=== PATIENT | male | born 1945 | race Caucasian/White ===

== ENCOUNTER 2019-11-06 15:28 | Outpatient (CLI) | payer OTHER, SELFPAY ==
[2019-11-06 16:19] LABS: ABG PCO2 48.4 mmHg (35-45); ABG PH Result 7.43 (7.35-7.45); Arterial Blood Gas Hematocrit 44.1 % (42-52); Base Excess ABG 6.3 mmol/L (-2.0-2.0); Blood Gas Allen Test Pos; Blood Gas Sample Site Radial, right; Blood Gas Sample Type Arterial; HCO3 ABG 31.9 mmol/L (22-26); Oxygen Device ROOM AIR; PO2 ABG 64.7 mmHg (80.0-100.0)
== END 2019-11-06 15:29 | disposition home or self-care (01) ==
PROVIDERS: Family Provider Family Medicine; PCP Family Medicine; Visit Provider Internal Medicine Critical Care Medicine
DX: J44.9 Chronic obstructive pulmonary disease, unspecified (principal)
CPT/HCPCS: 36600; 82803

== ENCOUNTER 2019-11-30 14:02 | Outpatient (CLI) | payer OTHER, SELFPAY ==
[2019-11-30 14:17] VITALS: O2SAT 87; O2SAT 92
--- NOTE | 2019-11-30 14:51 | PFTS_ITS ---
Date of Study:11/30/19 Date of Dictation: MECHANICS: Forced vital capacity (FVC) is reduced. Forced expiratory volume in one second (FEV1) is reduced. FEV1/FVC is reduced. FLOW VOLUME LOOP: Reduced flow at all lung volumes with significant scooping. LUNG VOLUMES: Total lung capacity (TLC) is normal. Residual volume (RV) is increased. DIFFUSING CAPACITY FOR CARBON MONOXIDE: Mildly reduced. INTERPRETATION: The pulmonary function tests are consistent with very severe obstruction. Lung volumes are consistent with air trapping. Gas exchange (DLCO) is mildly reduced. MTDD
--- NOTE | 2019-11-30 16:30 | USCV_ITS ---
Jarred Breaux Age: 74 Gender: M : 1945 Exam Date: 11/30/2019 15:01 Ordering Phys: Lori Ramos MD Technologist: Trinh Stauffer [place] [facility] [place]: SOB BP: / HR: 72 Rhythm: Sinus Technical Quality: Adequate MEASUREMENTS (Male / Female) Normal Values 2D ECHO LV Diastolic Diameter PLAX 4.3 cm 4.2 - 5.9 / 3.9 - 5.3 cm LV Systolic Diameter PLAX 2.3 cm IVS Diastolic Thickness 0.9 cm 0.6 - 1.0 / 0.6 - 0.9 cm IVS Systolic Thickness 1.7 cm LVPW Diastolic Thickness 1.2 cm 0.6 - 1.0 / 0.6 - 0.9 cm LVPW Systolic Thickness 1.8 cm LVOT Diameter 2.1 cm LV Ejection Fraction 2D Teich 78.5 % LV Ejection Fraction MOD 2C 66.6 % LV Ejection Fraction 2C AL 66.3 % LA Diameter 3.4 cm LA Width 3.2 cm LA Height 4.4 cm RA Width 3.6 cm M-MODE LV Diastolic Diameter MM 4.9 cm 4.2 - 5.9 / 3.9 - 5.3 cm LV Systolic Diameter MM 3.6 cm LV Ejection Fraction MM Teich 53.7 % IVS Diastolic Thickness MM 0.9 cm 0.6 - 1.0 / 0.6 - 0.9 cm IVS Systolic Thickness MM 1.2 cm LVPW Diastolic Thickness MM 0.9 cm 0.6 - 1.0 / 0.6 - 0.9 cm LVPW Systolic Thickness MM 1.8 cm Aortic Annulus Diameter 3.0 cm LA Ao Ratio MM 1.1 MV E Point Septal Separation 0.8 cm DOPPLER AV Peak Velocity 104.0 cm/s LVOT Peak Velocity 84.0 cm/s AV Area Cont Eq vti 3.0 cm squared AV Area Cont Eq pk 2.7 cm squared MV Peak Velocity 111.0 cm/s MV Area PHT 2.9 cm squared Mitral E to A Ratio 0.8 MV E' Velocity 9.0 cm/s Mitral E to MV E' Ratio 8.8 Mitral E to LV E' Lateral Ratio 9.2 Mitral E to LV E' Septal Ratio 8.4 TR Peak Velocity 63.0 cm/s TR Peak Gradient 1.6 mmHg Right Atrial Pressure 3.0 mmHg Pulmonary Artery Systolic Pressu 4.6 mmHg PV Peak Velocity 80.0 cm/s RV Acceleration Time 0.1 s FINDINGS Left Ventricle Normal left ventricular cavity size. Normal left ventricular systolic function. No regional wall motion abnormalities. Left ventricular ejection fraction is estimated at 55 %. Grade I/IV diastolic dysfunction (abnormal relaxation filling pattern), normal to mildly elevated filling pressures. Right Ventricle The right ventricle is normal in size and function. Right Atrium The right atrium is normal in size. Left Atrium The left atrium is normal in size. Mitral Valve Structurally normal mitral valve without significant stenosis or prolapse. There is no mitral regurgitation. Aortic Valve Moderate aortic valve calcification. No aortic valve stenosis. No aortic valve regurgitation. Tricuspid Valve Structurally normal tricuspid valve without significant stenosis or regurgitation. Pulmonary artery systolic pressure is normal. Pulmonic Valve Structurally normal pulmonic valve without significant stenosis. There is no pulmonic regurgitation. Pericardium Normal pericardium without effusion. Aorta Normal ascending aorta dimension. CONCLUSIONS 1-Normal left ventricular cavity size. Normal left ventricular systolic function. No regional wall motion abnormalities. Left ventricular ejection fraction is estimated at 55 %. Grade I/IV diastolic dysfunction (abnormal relaxation filling pattern), normal to mildly elevated filling pressures. 2-Moderate aortic valve calcification. No aortic valve stenosis. No aortic valve regurgitation. 3-There is no pericardial effusion. 4-Right atrial pressure is around 5 mm of mercury. 5-There are no prior echocardiogram studies to compare. Jeremy Camarillo MD (Electronically Signed) Final Date: 30 November 2019 18:20 S
== END 2019-11-30 14:03 | disposition home or self-care (01) ==
LOC: RT 14:04
PROVIDERS: Family Provider Family Medicine; PCP Family Medicine; Visit Provider Internal Medicine Critical Care Medicine
DX: R06.02 Shortness of breath (principal); I51.81 Takotsubo syndrome; I70.0 Atherosclerosis of aorta
CPT/HCPCS: 93306; 94010; 94726; 94729

== ENCOUNTER 2019-12-06 11:10 | Outpatient (CLI) | payer OTHER, SELFPAY | END 2019-12-06 11:11 | disposition home or self-care (01) | LOC: SLEEP 12-07 11:03 | PROVIDERS: Family Provider Family Medicine; PCP Family Medicine; Visit Provider Internal Medicine Critical Care Medicine | DX: J44.9 Chronic obstructive pulmonary disease, unspecified (principal) | CPT/HCPCS: 94762 ==

== ENCOUNTER 2020-01-10 10:37 | Outpatient (CLI) | payer OTHER, SELFPAY ==
--- NOTE | 2020-01-10 10:30 | CT_ITS ---
WS: [id number] CT scan of the chest without IV contrast, additional two-dimensional coronal and sagittal reconstruct ion was performed. 01/10/2020 Clinical Data: Shortness of breath Comparison: CT chest, 03/16/2015. DLP: 922.[address] scans at [facility] use at least one of these dose optimization techniques: automat ed exposure control; mA and/or kV adjustment per patient size (includes targeted exams where dose is matched to clinical indication); or iterative reconstruction. Findings: There are small calcified nodules in the periphery of the lungs. There are numerous calcified lymph n odes in the noah, subcarinal area and mediastinum. No masses or effusions are seen. The heart size is normal with no pericardial effusion. The trachea b ifurcates normally into the bronchi. No pneumonia or pneumothorax is seen. The pulmonary arterial sys tem and thoracic aorta demonstrate no abnormalities or dilatations. There is no axillary adenopathy. The upper abdomen demonstrates no abnormalities. Degenerative arthritic change of the thoracic verteb ral bodies is moderate. CT/CT chest wo con [id number] Impression: 1. Small granulomatous nodules throughout the lungs with calcified mediastinal, hilar and subcarinal lymph nodes unchanged. 2. Negative for acute cardiopulmonary disease.
== END 2020-01-10 10:38 | disposition home or self-care (01) ==
LOC: RADWPI 10:40
PROVIDERS: Family Provider Family Medicine; PCP Family Medicine; Visit Provider Internal Medicine Critical Care Medicine
DX: R06.02 Shortness of breath (principal); R91.8 Other nonspecific abnormal finding of lung field
CPT/HCPCS: 71250

== ENCOUNTER 2020-04-07 12:00 | Outpatient (CLI) | payer OTHER, SELFPAY | END 2020-04-07 12:01 | disposition home or self-care (01) | LOC: SLEEP 04-08 11:51 | PROVIDERS: Family Provider Family Medicine; PCP Family Medicine; Visit Provider Internal Medicine Critical Care Medicine | DX: G47.10 Hypersomnia, unspecified (principal) | CPT/HCPCS: G0399 ==

== ENCOUNTER 2020-07-09 20:00 | Outpatient (CLI) | payer OTHER, SELFPAY | END 2020-07-09 20:01 | disposition home or self-care (01) | LOC: SLEEP 07-10 10:13 | PROVIDERS: Family Provider Family Medicine; PCP Family Medicine; Visit Provider Family Medicine | DX: G47.33 Obstructive sleep apnea (adult) (pediatric) (principal) | CPT/HCPCS: 95811 ==

== ENCOUNTER → 2020-08-04 14:49 | Outpatient (BNVA) | payer OTHER, SELFPAY | PROVIDERS: Family Provider Family Medicine; PCP Family Medicine; Referring Provider Family Medicine; Visit Provider Specialist | DX: M25.532 Pain in left wrist (principal) | CPT/HCPCS: 73110 ==

== ENCOUNTER 2020-09-03 20:00 | Outpatient (CLI) | payer OTHER, SELFPAY | END 2020-09-03 20:01 | disposition home or self-care (01) | LOC: SLEEP 09-04 09:16 | PROVIDERS: Family Provider Family Medicine; PCP Family Medicine; Visit Provider Emergency Medicine Emergency Medical Services | DX: G47.30 Sleep apnea, unspecified (principal) | CPT/HCPCS: 95811 ==

== ENCOUNTER 2020-10-27 15:54 | Emergency (ER) | payer OTHER, MEDICARE, SELFPAY ==
[2020-10-27 16:02] VITALS: BP 146/77; PULSE 86; RESP 20; TEMP 37.1; O2SAT 94; BMI 28.3
[2020-10-27 16:07] VITALS: BP 145/73; PULSE 87; RESP 22; O2SAT 98
--- NOTE | 2020-10-27 16:38 | XRR_ITS ---
PROCEDURE INFORMATION: Exam: XR Right Ankle Exam date and time: 10/27/2020 5:37 PM Age: 75 years old Clinical indication: Injury or trauma; Other: Crush injury; Crushing; Ankle; Right TECHNIQUE: Imaging protocol: XR Right ankle. Views: 1 or 2 views. COMPARISON: No relevant prior studies available. FINDINGS: Bones/joints: Normal. Soft tissues: Diffuse soft tissue swelling. XR/XR ankle RT 1V [id number] IMPRESSION: 1. No fractures are identified on single view imaging. 2. Diffuse soft tissue swelling.
--- NOTE | 2020-10-27 16:38 | XRR_ITS ---
PROCEDURE INFORMATION: Exam: XR Right Tibia and Fibula Exam date and time: 10/27/2020 5:37 PM Age: 75 years old Clinical indication: Injury or trauma; Other: Crush injury; Crushing; Lower leg; Right TECHNIQUE: Imaging protocol: XR Right tibia and fibula. Views: 2 views. COMPARISON: No relevant prior studies available. FINDINGS: Bones/joints: Normal. Soft tissues: Normal. XR/XR tibia fibula RT 2V [id number] IMPRESSION: No acute findings.
--- NOTE | 2020-10-27 16:39 | ED_ITS ---
HPI - Extremity Problem General: Chief complaint: Extremity Injury, Lower Stated complaint: POSS BLOOD CLOT IN LEG, SENT FROM [place] Time Seen by Provider: 10/27/20 16:31 History of Present Illness: HPI Narrative: This patient is a 75-year-old male who presents to the emergency department for right lower leg pain. 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 Patient complains of significant bruising to the midshaft of the right lower leg and distally to the right ankle. Patient states pain is not improved. Patient does take aspirin daily. Will do medical evaluation treat as needed. MD Complaint: extremity pain and extremity swelling Onset (ago): day(s) Pain Consistency: constant Location: right and lower extremity Severity scale (1-10): 7 Associated symptoms: Deny chest pain, fever(s) or rash Review of Systems General: Reports: 10 or more systems reviewed and unremarkable except in HPI and below Const: Denies: fever(s), chills, body aches or fatigue Eyes: Denies: change in vision or blurry vision ENMT: Denies: throat pain, hoarseness or mouth pain Card: Denies: chest pain, palpitations, irregular heart rhythm, edema, swelling of feet/ankles or lightheadedness Resp: Denies: dyspnea, productive cough, non-productive cough, wheezing or lise n on inspiration GI: Denies: abdominal pain, nausea or vomiting : Denies: flank pain, dysuria, urinary frequency, urinary urgency or urinary hesitancy Musc: Reports: extremity pain; Denies: neck pain, back pain, extremity swelling, joint pain, joint swelling, joint redness, joint warmth or limited range of motion Skin/Breast: Denies: rash, pruritus, erythema or skin tenderness Neuro: Denies: headache(s), numbness in extremities or weakness in extremities Psych: Denies: anxiety or depression PFS ED PFSH: Medical History (Updated 10/27/20 @ 18:59 by Casper Sebastian MD) Calculus of kidney COPD (chronic obstructive pulmonary disease) GERD (gastroesophageal reflux disease) HTN (hypertension) Hyperlipidemia TAL (obstructive sleep apnea) Surgical History Hx of tonsillectomy Social History Smoking and tobacco status: former smoker Quit status (tobacco): has quit using tobacco Year quit tobacco: 1979 - 1PPD x 20 Years Second hand smoke exposure: No Alcohol intake: never Lives independently: Yes Household members: spouse Marital status: service: Yes Current occupational status: retired and disabled History of recent travel: No Current gender identity: Male Physical Exam Const: COMMON NORMALS: no acute distress, average body habitus, patient oriented x3, no limitations, healthy appearing, alert and well nourished HENMT: COMMON NORMALS: normocephalic, atraumatic, hearing grossly normal bilaterally, external ears normal, EAC's normal, TM's normal bilaterally, Normal external nose present, Normal nasal mucous membranes and turbinates present, m oist oral mucous membranes, oropharynx normal, dentition normal and gingiva normal HEAD & SCALP: normocephalic and atraumatic NOSE: Normal external nose present and Normal nasal mucous membranes and turbinates present EXTERNAL EAR: Yes external ears normal EXTERNAL AUDITORY CANAL: EAC's normal TYMPANIC MEMBRANE: TM's normal bilaterally Neck/C-Spine: COMMON NORMALS: full ROM, no lymphadenopathy, supple, no meningeal signs, no JVD, Thyroid normal and No carotid bruits THYROID: Thyroid normal Chest: COMMONS NORMALS: normal inspection of the chest, normal palpation of entire chest wall, normal inspection of the breasts and normal palpation of the breasts Breast/axilla inspection: Yes normal inspection of the breasts BREAST/AXILLA PALPATION: Yes normal palpation of the breasts Resp: COMMON NORMALS: normal respiratory effort, No retractions, No use of accessory muscles, clear to auscultation bilaterally and percussion normal AU SCULTATION: clear to auscultation bilaterally PERCUSSION: percussion normal Cardio: COMMON NORMALS: no JVD, regular rate, regular rhythm, S1 normal heart sound present, S2 normal heart sound present, No gallops present (Cardio), No clicks present (Cardio), No murmurs present (Cardio), No rub (Cardio) and P eripheral pulses 2+ throughout RATE: regular rate RHYTHM: regular rhythm HEART SOUNDS: S1 normal heart sound present and S2 normal heart sound present PERIPHERAL PULSES: Peripheral pulses 2+ throughout GI: COMMON NORMALS: Normal to inspection, nondistended, normoactive bowel sounds present, Soft to palpation, non-tender, No hepatosplenomegaly present, no masses and no bruits PALPATION: Yes Soft to palpation and Yes No hepatosplenomegaly present : COMMON NORMALS: Yes no CVA tenderness BLADDER/KIDNEY EXAM: Yes no CVA tenderness Back/Pelvis: COMMON NORMALS: no CVA tenderness, thoracic and lumbar spine normal to inspection, no thoracic nor lumbar tenderness, thoraco-lumbar ROM normal and straight leg raise negative bilaterally Extremity: COMMON NORMALS: full ROM, capillary refill normal, no joint enlargement, no clubbing, cyanosis or edema and no calf tenderness RIGHT LOWER EXTREMITY: Yes lower leg (Patient complaining of pain midshaft and distally of the right lower leg. ) Right lower leg: Yes inspection, Yes palpation and Yes neurovascular exam Neuro: COMMON NORMALS: patient oriented x3 SENSORIUM/ORIENTATION: Yes alert MENINGEAL SIGNS: Yes no meningeal signs Course Reevaluation(s): Reevaluation #1: Negative evaluation in the emergency room for any acute findings. Patient is to continue Horacio wrap as needed for rest ice and elevate leg with compression as instructed. Take medications for pain as needed. Slowly increase activity as swelling subsides. Follow-up with PCP in 2 to 3 days Time: 18:58 Vital Signs: Vital signs: Vital Signs Temperature 98.8 F 10/27/20 16:02 Pulse Rate 79 10/27/20 18:07 Respiratory Rate 18 10/27/20 18:07 Blood Pressure 128/68 10/27/20 18:07 Pulse Oximetry 99 10/27/20 18:07 MDM - Extremity (Nontraumatic) MDM Narrative: Medical decision making narrative: Patient had a injury of his right lower leg while working cattle patient large hematoma continue to have pain. Differential Diagnosis: Extremity Problem Differential Diagnosis: Likely cellulitis and lower extremity edema Medical Records: Attestation: I reviewed the patient's medical records. Imaging Data^: Xray Ortho: Attestation: I personally reviewed and interpreted this imaging study as follows: Radiologist's impression: Negative x-rays of the lower leg on the right for any acute fractures. Only soft tissue swelling. Discharge Plan Discharge Patient Disposition: Home Clinical Impression: Contusion of leg, right Condition: Stable Prescriptions: New diclofenac sodium 75 mg tablet,delayed release (DR/EC) 75 mg PO BID PRN (Reason: pain) Qty: 20 RF: 0 No Action ipratropium-albuterol 0.5 mg-3 mg(2.5 mg base)/3 mL solution for nebulization 3 ml INHALATION QID PRN (Reason: Shortness Of Breath) RF: 0 budesonide-formoterol 160-4.5 mcg/actuation HFA aerosol inhaler 2 puff INHALATION BID RF: 0 hydrochlorothiazide 25 mg tablet 25 mg PO QAM RF: 0 omeprazole 20 mg capsule,delayed release(DR/EC) 20 mg PO QAM RF: 0 tiotropium bromide 2.5 mcg/actuation mist 2 inh INHALATION QAM RF: 0 aspirin [Adult Aspirin Regimen] 81 mg tablet,delayed release (DR/EC) 81 mg PO QAM RF: 0 albuterol sulfate [ProAir HFA] 90 mcg/actuation HFA aerosol inhaler 2 puff INHALATION Q6H PRN (Reason: Shortness Of Breath) RF: 0 flaxseed oil 1,000 mg capsule 1,000 mg PO QAM RF: 0 garlic Tablet 1 tab PO QAM RF: 0 potassium gluconate 595 mg (99 mg) Tablet 595 mg PO QAM RF: 0 Cayenne PDR 1 cap PO QAM RF: 0 Vitamin C 2 tab PO DAILY RF: 0 Vitamin D3 1 cap PO QAM RF: 0 Discharge Orders: Discharge ED (Routine); Ordered 10/27/20 Ordered By: Casper Sebastian Discharge Diet: Advance as tolerated Discharge Activity: Increase activity as tolerated Patient Instructions: Opioid Safety Activity Restrictions/Additional Instructions: Negative evaluation in the emergency room for any acute findings. Patient is to continue Horacio wrap as needed for rest ice and elevate leg with compression as instructed. Take medications for pain as needed. Slowly increase activity as swelling subsides. Follow-up with PCP in 2 to 3 days Coding Level of Care Code ED Ruling Machine Feeder for Kayla Fwtiki Exam Comprehensive
[2020-10-27 16:40] VITALS: PULSE 89
[2020-10-27 18:07] VITALS: BP 128/68; PULSE 79; RESP 18; O2SAT 99
[2020-10-27 19:33] VITALS: BP 127/81; PULSE 86; RESP 17; TEMP 36.9; O2SAT 97
== END 2020-10-27 19:35 | disposition home or self-care (01) ==
PROVIDERS: Emergency Provider Emergency Medicine
DX: S80.11XA Contusion of right lower leg, initial encounter (principal); Z79.82 Long term (current) use of aspirin; J44.9 Chronic obstructive pulmonary disease, unspecified; I10 Essential (primary) hypertension; E78.5 Hyperlipidemia, unspecified; Z87.891 Personal history of nicotine dependence; W23.0XXA Caught, crushed, jammed, or pinched between moving objects, initial encounter
CPT/HCPCS: 73590; 73600; 99283

== ENCOUNTER → 2021-09-17 10:32 | Outpatient (BNVA) | payer OTHER, SELFPAY | PROVIDERS: PCP Family Medicine; Visit Provider Internal Medicine Critical Care Medicine | DX: J44.9 Chronic obstructive pulmonary disease, unspecified (principal); J96.11 Chronic respiratory failure with hypoxia; J96.12 Chronic respiratory failure with hypercapnia; Z87.891 Personal history of nicotine dependence; G47.33 Obstructive sleep apnea (adult) (pediatric) | CPT/HCPCS: 99214 ==

== ENCOUNTER → 2022-01-21 10:35 | Outpatient (BNVA) | payer OTHER, SELFPAY | PROVIDERS: PCP Family Medicine; Visit Provider Internal Medicine Critical Care Medicine | DX: J44.9 Chronic obstructive pulmonary disease, unspecified (principal); J96.11 Chronic respiratory failure with hypoxia; J96.12 Chronic respiratory failure with hypercapnia; G47.33 Obstructive sleep apnea (adult) (pediatric); Z99.81 Dependence on supplemental oxygen | CPT/HCPCS: 99214 ==

== ENCOUNTER → 2022-07-20 13:24 | Outpatient (BNVA) | payer OTHER, SELFPAY | PROVIDERS: PCP Family Medicine; Visit Provider Internal Medicine Pulmonary Disease | DX: J44.9 Chronic obstructive pulmonary disease, unspecified (principal); J96.11 Chronic respiratory failure with hypoxia; J96.12 Chronic respiratory failure with hypercapnia; Z99.81 Dependence on supplemental oxygen; Z87.891 Personal history of nicotine dependence | CPT/HCPCS: 99214 ==

== ENCOUNTER → 2023-01-13 08:38 | Outpatient (BNVA) | payer OTHER, SELFPAY | PROVIDERS: PCP Family Medicine; Visit Provider Internal Medicine Pulmonary Disease | DX: J96.11 Chronic respiratory failure with hypoxia (principal); J44.9 Chronic obstructive pulmonary disease, unspecified; J96.12 Chronic respiratory failure with hypercapnia; Z87.891 Personal history of nicotine dependence; Z99.81 Dependence on supplemental oxygen | CPT/HCPCS: 99214 ==

== ENCOUNTER → 2023-03-21 14:34 | Outpatient (BNVA) | payer OTHER, SELFPAY | PROVIDERS: PCP Family Medicine; Visit Provider Surgery | DX: R10.9 Unspecified abdominal pain (principal); K43.9 Ventral hernia without obstruction or gangrene | CPT/HCPCS: 99204 ==

== ENCOUNTER 2023-03-30 14:39 | Outpatient (CLI) | payer OTHER, SELFPAY ==
--- NOTE | 2023-03-30 16:00 | CT_ITS ---
WS: [id number] CT ABDOMEN PELVIS TECHNIQUE: Contrast-enhanced CT of the abdomen and pelvis with coronal and sagittal reformatted image s. CLINICAL INFORMATION: abdominal pain/abdominal wall hernia COMPARISON: None. DLP: 410.[address] scans at [facility] use at least one of these dose optimization techniques: automated e xposure control; mA and/or kV adjustment per patient size (includes targeted exams where dose is matc hed to clinical indication); or iterative reconstruction. FINDINGS: Small RIGHT parasagittal fat-containing periumbilical hernia. Small knuckle of protruding small margo l. No evidence of obstruction. Evidence of prior repair fat-containing midline umbilical hernia. Tiny calcified granulomas in the lung bases. Diffuse fatty filtration of the liver. Normal portal vei n and splenic vein. Small esophageal hiatal hernia. Small RIGHT renal cyst. Adrenal glands are normal . Normal renal parenchymal enhancement and hydronephrosis. Normal caliber abdominal aorta. Aortic wanda cification. Slightly aneurysmal infrarenal abdominal aorta measuring 2.3 x 2.2 cm. Celiac and SMA are patent. Enlarged prostate measuring 4.8 cm. Recommend correlation PSA. Impingement on the dorsal bladder. Sig moid diverticulosis. No evidence of acute diverticulitis. No high-grade small or large bowel obstruct ion. Small bilateral fat-containing inguinal hernias. Advanced joint arthritis both hips with joint s pace narrowing hypertrophic changes. IMPRESSION: 1. Small fat-containing parasagittal umbilical hernia with a small knuckle of herniated small bowel. No evidence of obstruction. 2. Evidence of prior fat-containing midline umbilical hernia repair. 3. Markedly enlarged prostate measuring 4.8 cm. Recommend correlation PSA. 4. Sigmoid diverticulosis. 5. Small slightly aneurysmal infrarenal abdominal aorta measuring 2.3 x 2.2 cm. 6. Incidental fat-containing inguinal hernias.
[2023-03-30] MEDS: iohexol 350 mg/mL 500 mL Btl (per mL) PO (16:08)
[2023-03-30] MEDS: iohexol 350 mg/mL 500 mL Btl (per mL) IV (16:10)
== END 2023-03-30 14:40 | disposition home or self-care (01) ==
PROVIDERS: PCP Family Medicine; Visit Provider Surgery
DX: R10.9 Unspecified abdominal pain (principal); K43.9 Ventral hernia without obstruction or gangrene; K42.9 Umbilical hernia without obstruction or gangrene; N40.0 Benign prostatic hyperplasia without lower urinary tract symptoms; K57.30 Diverticulosis of large intestine without perforation or abscess without bleeding; I71.43 Infrarenal abdominal aortic aneurysm, without rupture
CPT/HCPCS: 74177; Q9967

== ENCOUNTER → 2023-04-26 10:41 | Outpatient (BNVA) | payer OTHER, SELFPAY | PROVIDERS: PCP Family Medicine; Visit Provider Surgery | DX: Z09 Encounter for follow-up examination after completed treatment for conditions other than malignant neoplasm (principal) | CPT/HCPCS: 99213 ==

== ENCOUNTER 2023-04-28 08:03 | Day surgery (SDC) | payer OTHER, SELFPAY ==
--- NOTE | 2023-04-28 06:39 | W.PM.OPSUD ---
Surgery/Procedure H&P Update DATE OF PROCEDURE: April 28, 2023 DATE H&P PERFORMED: 04/26/23 H&P UPDATE INFORMATION: I have reviewed H&P completed within last 30 days, I have examined patient prior to procedure, No changes to prior documentation and H&P is in [facility] EMR on date indicated PLANNED PROCEDURE: Operation Date: 04/28/23 08:30 Proposed Procedures p EGD [id number],R10.9(Not Applicable) - Julien Flores MD
[2023-04-28 08:19] VITALS: BP 167/79; PULSE 81; RESP 16; TEMP 36.7; O2SAT 93; BMI 25.4
[2023-04-28] MEDS: sodium chloride 0.9% 1,000 ML 30 ML IV (08:41)
--- NOTE | 2023-04-28 08:43 | ANES.PREANE2 ---
Pre-Anesthetic Assessment Height/Weight: Height 1.75 m Weight 78.018 kg Temp Pulse Resp BP Pulse Ox O2 Del Method 98.0 F 81 16 167/79 93 Room Air 04/28/23 08:19 04/28/23 08:19 04/28/23 08:19 04/28/23 08:19 04/28/23 08:19 04/28/23 08:19 Preop Diagnosis: abdominal pain Operation Date: 04/28/23 08:30 Proposed Procedures p EGD 35736,R10.9(Not Applicable) - Julien Flores MD Was Beta Radha taken within 24 hours: N/A Was Clonidine taken within 24 hours: N/A Last intake: Intake Last Liquid Date 04/27/23 Last Liquid Time 22:00 Last Solid Date 04/27/23 Last Solid Time 22:00 Last Intake: 23:00 Social No tobacco (former smoker; exposed to chemical at work) Exam alert and oriented x 3 Airway Submandibular: within normal limits Cervical ROM: within normal limits Mallampati: Class II Dentition: false (uppers) History/ROS No significant history except as noted Pulmonary Chronic Obstructive Pulmonary Disease (home O2 all the time) and Sleep Apnea CV/HEM Hypertension None reported Hepatic None reported GI Gastroesophageal Reflux Disease Metabolic Hyperlipidemia [facility] None reported Neuropsych None reported Anesthetic Plan ASA status: 3 Anesthesia: MAC Risk of > 500 ml blood loss (7ml/kg in children): No Medications/Allergies Home Medications Medication Instructions Recorded Confirmed Last Taken Type albuterol sulfate 90 mcg/actuation 2 puff inhalation Q6H PRN 11/06/19 04/28/23 04/28/23 History aerosol inhaler (ProAir HFA) Shortness Of Breath flaxseed oil 1,000 mg capsule 1,000 mg PO QAM 11/06/19 04/28/23 04/27/23 History hydrochlorothiazide 25 mg tablet 25 mg PO QAM 11/06/19 04/28/23 04/27/23 History ipratropium 0.5 mg-albuterol 3 mg 3 ml inhalation QID PRN Shortness 11/06/19 04/28/23 04/27/23 History (2.5 mg base)/3 mL nebulization Of Breath soln omeprazole 20 mg capsule,delayed 40 mg PO QAM 11/06/19 04/28/2323 History release Cayenne PDR 1 cap PO QAM 10/27/20 04/28/23 04/27/23 History Vitamin C 2 tab PO DAILY 10/27/20 04/28/23 04/27/23 History Vitamin D3 1 cap PO QAM 10/27/20 04/28/23 04/27/23 History diclofenac sodium 75 mg 75 mg PO BID PRN pain #20 tabs 10/27/20 04/27/23 04/27/23 Rx tablet,delayed release garlic 1 tab PO QAM 10/27/20 04/28/23 04/27/23 History potassium gluconate 595 mg (99 mg) 595 mg PO QAM 10/27/20 04/28/23 04/27/23 History tablet budesonide 160 mcg-glycopyr 9 2 inh inhalation BID 01/21/22 04/28/23 04/28/23 History mcg-formot 4.8 mcg/actuation HFA inhaler ([employer]) famotidine 40 mg tablet 40 mg PO DAILY 03/21/23 04/28/23 04/27/23 History sucralfate 1 gram tablet 1 g PO BID 03/21/23 04/27/23 04/27/23 History Allergies Allergy/AdvReac Type Severity Reaction Status Date / Time No Known Allergies Allergy Verified 04/26/23 11:15 Current Medications Generic Name Dose Route Start Last Admin Trade Name Freq PRN Reason Stop Dose Admin Sodium Chloride 1,000 mls @ 30 mls/hr 04/28/23 08:15 04/28/23 08:41 Sodium Chloride 0.9% IV 30 mls/hr .Q24H STONEY Administration PFSH Anesthesia Medical History (Updated 03/21/23 @ 15:51 by Julien Flores MD) Calculus of kidney COPD (chronic obstructive pulmonary disease) GERD (gastroesophageal reflux disease) HTN (hypertension) Hyperlipidemia TAL (obstructive sleep apnea) Surgical History (Updated 04/26/23 @ 11:22 by Lanny Ugarte LPN) Hx of tonsillectomy Social History Smoking and tobacco/nicotine status: former use of tobacco/nicotine Quit status (tobacco/nicotine): has quit using Year quit tobacco: 1979 - 1PPD x 20 Years Second hand smoke exposure: No Alcohol intake: never Substance/Drug Use: never Lives independently: Yes Household members: spouse Marital status: service: Yes Current occupational status: retired and disabled Do you think of yourself as: Straight/Heterosexual Current gender identity: Male Data Anesthesia Cardiac Studies: Echocardiogram Ultrasound 11/30/19
[2023-04-28 09:50] VITALS: BP 122/63; PULSE 77; RESP 20; TEMP 36.3; O2SAT 91
[2023-04-28 10:06] VITALS: BP 123/60; PULSE 73; RESP 16; O2SAT 96
--- NOTE | 2023-04-28 10:20 | ANE.PACU2 ---
Inpatient post-anesthesia follow up: Airway intact: Yes Vital signs: Temperature 97.3 F Pulse Rate 73 Respiratory Rate 16 Blood Pressure 123/60 Pulse Oximetry 96 Oxygen Delivery Me thod Room Air Oxygen Flow Rate Fraction of Inspir ed Oxygen Hydration adequate: Yes Nausea and vomiting: No Pain level: 1 Mental status: Baseline
== END 2023-04-28 10:20 | disposition home or self-care (01) ==
PROVIDERS: PCP Family Medicine; Visit Provider Surgery
PROC: 0DJ08ZZ Inspection of Upper Intestinal Tract, Via Natural or Artificial Opening Endoscopic (ICD-10-PCS; CPT 43235; principal; 2023-04-28 08:30)
DX: R10.9 Unspecified abdominal pain (principal); K21.9 Gastro-esophageal reflux disease without esophagitis; K29.70 Gastritis, unspecified, without bleeding; J44.9 Chronic obstructive pulmonary disease, unspecified; Z99.81 Dependence on supplemental oxygen; I10 Essential (primary) hypertension; E78.5 Hyperlipidemia, unspecified; G47.33 Obstructive sleep apnea (adult) (pediatric); Z87.891 Personal history of nicotine dependence
CPT/HCPCS: 43239; 88305; 88342; J2704; J7030

== ENCOUNTER → 2023-05-16 08:00 | Outpatient (BNVA) | payer OTHER, SELFPAY | PROVIDERS: PCP Family Medicine; Visit Provider Surgery | DX: Z09 Encounter for follow-up examination after completed treatment for conditions other than malignant neoplasm (principal) | CPT/HCPCS: 99214 ==

== ENCOUNTER → 2023-07-14 08:16 | Outpatient (BNVA) | payer OTHER, SELFPAY | PROVIDERS: PCP Family Medicine; Visit Provider Internal Medicine Pulmonary Disease | DX: J44.9 Chronic obstructive pulmonary disease, unspecified (principal); J96.11 Chronic respiratory failure with hypoxia; J96.12 Chronic respiratory failure with hypercapnia; Z12.2 Encounter for screening for malignant neoplasm of respiratory organs; Z99.81 Dependence on supplemental oxygen; Z87.891 Personal history of nicotine dependence | CPT/HCPCS: 99214 ==

== ENCOUNTER 2023-08-03 13:59 | Outpatient (CLI) | payer OTHER, SELFPAY ==
--- NOTE | 2023-08-03 14:15 | CT_ITS ---
WS: [id number] LDCT LUNG CANCER SCREENING TECHNIQUE: Noncontrast CT of the chest with coronal and sagittal reformatted images. CLINICAL INFORMATION: Cancer Screen COMPARISON: CT chest 2019 DLP: 67.71 mGy.cm DIvol: Mean CTDIvol: 1.30 (mGy) All CT scans at [facility] use at least one of these dose optimization techniques: automat ed exposure control; mA and/or kV adjustment per patient size (includes targeted exams where dose is matched to clinical indication); or iterative reconstruction. FINDINGS: Innumerable small granulomatous nodules throughout both lungs similar to previous. Calcified mediasti nal and hilar lymph nodes. Calcified subcarinal lymph nodes. Normal caliber thoracic aorta. Aortic ca lcification. Coronary calcification. No axillary lymphadenopathy. Parenchymal fibrosis RIGHT upper lo be anteriorly. Tiny noncalcified nodule RIGHT upper lobe anteriorly Adrenal glands are normal. Normal GE junction. Splenic granulomas. Mild thoracic curve. Mild thoracic kyphosis. Anterior hypertrophic changes thoracic spine. IMPRESSION: CT/CT lung screening [id number] LUNG-RADS: 2-Benign Appearance or Behavior FOLLOW UP: 12 Month: Continue annual screening with LDCT
== END 2023-08-03 14:00 | disposition home or self-care (01) ==
LOC: RAD 13:59
PROVIDERS: PCP Family Medicine; Visit Provider Internal Medicine Pulmonary Disease
DX: Z12.2 Encounter for screening for malignant neoplasm of respiratory organs (principal); Z87.891 Personal history of nicotine dependence
CPT/HCPCS: 71271

== ENCOUNTER → 2023-10-04 13:38 | Outpatient (BNVA) | payer OTHER, SELFPAY | PROVIDERS: PCP Family Medicine; Visit Provider Internal Medicine Pulmonary Disease | DX: J44.9 Chronic obstructive pulmonary disease, unspecified (principal); J96.11 Chronic respiratory failure with hypoxia; J96.12 Chronic respiratory failure with hypercapnia | CPT/HCPCS: 99214 ==

== ENCOUNTER 2025-03-17 00:22 | Emergency (ER) | payer OTHER, MEDICARE, SELFPAY ==
[2025-03-17 00:27] VITALS: BP 147/75; PULSE 87; RESP 20; TEMP 36.8; O2SAT 97; BMI 23.6
--- NOTE | 2025-03-17 00:32 | CTR_ITS ---
PROCEDURE INFORMATION: Exam: CT Abdomen And Pelvis With Contrast Exam date and time: 03/17/2025 1:24 AM Age: 79 years old Clinical indication: Abdominal pain; C/O left flank and low back pain with nausea. ; Additional info: Abd pain/flank pain TECHNIQUE: Imaging protocol: Computed tomography of the abdomen and pelvis with contrast. Radiation optimization: All CT scans at this facility use at least one of these dose optimization techniques: automated exposure control; mA and/or kV adjustment per patient size (includes targeted exams where dose is matched to clinical indication); or iterative reconstruction. Contrast material: OMNI 350; Contrast volume: 100 ml; Contrast route: INTRAVENOUS (IV); COMPARISON: CT abdomen pelvis w con* [id number] 03/30/2023 4:07 PM RADIATION DOSE METRICS: Total DLP (mGy-cm): 511.93 FINDINGS: Liver: Hepatic granulomas are present, likely sequela of prior infection or granulomatous changes. Gallbladder and biliary ducts: Normal. No calcified stones. No ductal dilation. Pancreas: Normal. No ductal dilation. Spleen: Parenchymal calcifications are seen throughout the spleen, likely reflecting prior granulomatous changes. The spleen is otherwise normal. Adrenal glands: Normal. No mass. Kidneys and ureters: Simple right renal cysts are present (Bosniak 1). No follow-up required. A 3 mm obstructive stone is seen in the mid left ureter. Mild left hydroureter is present. Mild left hydronephrosis is present. Stomach and bowel: A duodenal diverticulum is present. A moderate colonic stool burden is present. Colonic diverticulosis without evidence of acute diverticulitis is present. The large and small bowel are otherwise unremarkable without obstruction or wall thickening. Appendix: The appendix is normal. Intraperitoneal space: Unremarkable. No free air. No significant fluid collection. Vasculature: Moderate atherosclerosis of the abdominal aorta and major vessels is branching present. Lymph nodes: Unremarkable. No enlarged lymph nodes. Urinary bladder: Unremarkable as visualized. Reproductive: The prostate is enlarged. Bones/joints: Intervertebral disc height loss and degenerative changes are seen in the lumbar spine, most pronounced at L5-S1. Severe bilateral hip osteoarthritis is present. 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 Exudates, stable from 03/30/2023. Soft tissues: Unremarkable. CT/CT abdomen pelvis w con* [id number] IMPRESSION: 1. Obstructing 3 mm mid left ureteral stone. 2. Mild left hydroureter. 3. Mild left hydronephrosis. 4. Moderate colonic stool burden. Recommend clinical correlation for constipation. 5. Colonic diverticulosis without evidence of acute diverticulitis. 6. Prostatomegaly. Correlate with PSA. 7. Degenerative joint disc disease, most notable at L5-S1. 8. Severe bilateral hip osteoarthritis. COMMENTS: Consistent with the [employer]'s Incidental Findings Committee white paper (J Am Victorina Radiol 2018): Any incidental renal lesion less than 1 cm or classified as too small to characterize, or any incidental cystic renal lesion characterized as simple-appearing, is likely benign. No follow-up imaging is recommended for these lesions per consensus recommendations based on imaging criteria.
[2025-03-17 01:01] LABS: Hematocrit 40.5 % (37-53); Hemoglobin 13.40 g/dL (11.27-16.99); Mean Corpuscular HGB Conc 33.1 g/dL (30-55); Mean Corpuscular Hemoglobin 31.8 pg (27-33); Mean Corpuscular Volume 96.0 fl (82-101); Nucleated Red Blood Cells % 0 %; Platelet Count 187 10^3/cmm (157-399); Red Blood Count 4.22 10^6/uL (3.85-5.65); White Blood Count 10.34 10^3/uL (3.29-11.43)
[2025-03-17 01:10] VITALS: BP 128/68; PULSE 86; RESP 18; O2SAT 98
[2025-03-17 01:12] LABS: Alanine Aminotransferase 8 U/L (0-41); Albumin Level 4.3 g/dL (3.5-5.2); Alkaline Phosphatase 55 U/L (40-130); Anion Gap 17.2 (5-19); Aspartate Amino Transferase 14 U/L (0-40); Blood Urea Nitrogen 19 mg/dL (8-23); Calcium 9.4 mg/dL (8.5-10.5); Carbon Dioxide 25 mmol/L (22-29); Chloride 102 mmol/L (98-107); Creatinine Clr Calc Pharmacy 67.2600; Globulin 2.2 g/dL (1.3-4.6); Glucose 137 mg/dL (65-115); Lipase 24 U/L (13-60); Osmolality Calculated 294 mOsm/kg (285-295); Potassium 4.2 mmol/L (3.5-5.1); Sodium 140 mmol/L (136-145); Total Protein 6.5 g/dL (6.6-8.7)
[2025-03-17] MEDS: ondansetron 2 mg/ML SDV 2 mL 4 MG IVP (01:14)
[2025-03-17 01:15] VITALS: RESP 18; O2SAT 98
[2025-03-17] MEDS: morphine 4 mg/mL SDV 1 mL IVP (01:15)
[2025-03-17] MEDS: iohexol 350 mg/mL 500 mL Btl (per mL) IV (01:26)
[2025-03-17 02:12] VITALS: BP 114/54; PULSE 68; RESP 14; O2SAT 94
[2025-03-17 02:39] VITALS: BP 131/78; PULSE 78; RESP 16; O2SAT 95
--- NOTE | 2025-03-17 04:47 | W.ED.ABDPA2 ---
HPI - Abdominal Pain General: Chief Complaint: Abdominal Pain Stated Complaint: abd to back pain Time Seen by Provider: 03/17/25 00:31 History of Present Illness: 79 yo M with Hx of COPD on home O2 and prior nephrolithiasis presents with left lower abdominal pain that began either late last night per triage or earlier today per pt, progressively worsening and now radiating to the left flank. Pain is severe at times, with flank palpation notably painful; abdominal palpation less so. Reports constipation x3?5 days and vomiting x3 today, with last episode described as almost black-looking. Ate a burger with mushrooms before noon; noted undigested mushrooms in stool later. Uses 3 L NC at home; states exertional dyspnea and low activity tolerance. No specific fever, chest pain, or urinary Sx discussed. Pt agreeable to testing and symptomatic Tx. Related Data Home Medications ?Medication ?Instructions ?Recorded ?Confirmed albuterol sulfate 90 mcg/actuation 2 puff inhalation Q6H PRN 11/06/19 10/04/23 aerosol inhaler (ProAir HFA) Shortness Of Breath flaxseed oil 1,000 mg capsule 1,000 mg PO QAM 11/06/19 10/04/23 hydrochlorothiazide 25 mg tablet 25 mg PO QAM 11/06/19 10/04/23 ipratropium 0.5 mg-albuterol 3 mg 3 ml inhalation QID PRN Shortness 11/06/19 10/04/23 (2.5 mg base)/3 mL nebulization Of Breath soln [place] PDR 1 cap PO QAM 10/27/20 10/04/23 Vitamin C 2 tab PO DAILY 10/27/20 10/04/23 Vitamin D3 1 cap PO QAM 10/27/20 10/04/23 garlic 1 tab PO QAM 10/27/20 10/04/23 potassium gluconate 595 mg (99 mg) 595 mg PO QAM 10/27/20 10/04/23 tablet budesonide 160 mcg-glycopyr 9 2 inh inhalation BID 01/21/22 10/04/23 mcg-formot 4.8 mcg/actuation HFA inhaler (Breztri Aerosphere) sucralfate 1 gram tablet 1 g PO BID 03/21/23 10/04/23 guaifenesin 600 mg tablet, 600 mg PO Q12H PRN 10/04/23 10/04/23 extended release 12 hr (Mucinex) Previous Rx's ?Medication ?Instructions ?Recorded pantoprazole 40 mg tablet,delayed 40 mg PO BID 30 days #60 tabs 05/16/23 release doxycycline hyclate 100 mg tablet 100 mg PO BID #10 tabs 10/04/23 prednisone 10 mg tablet 10 mg PO DAILY PRN wheezing #14 10/04/23 tabs Allergies Allergy/AdvReac Type Severity Reaction Status Date / Time No Known Allergies Allergy Verified 03/17/25 00:29 [facility] ED PFSH: Medical History (Updated 03/17/25 @ 02:28 by Fabrizio Arriaza MD) Calculus of kidney COPD (chronic obstructive pulmonary disease) HTN (hypertension) GERD (gastroesophageal reflux disease) Hyperlipidemia TAL (obstructive sleep apnea) Surgical History Hx of tonsillectomy Social History Smoking and tobacco/nicotine status: former use of tobacco/nicotine Quit status (tobacco/nicotine): has quit using Year quit tobacco: 1979 - 1PPD x 20 Years Second hand smoke exposure: No Alcohol intake: never Substance/Drug Use: never Lives independently: Yes Household members: spouse Marital status: service: Yes Current occupational status: retired and disabled Do you think of yourself as: Straight/Heterosexual Current gender identity: Male Physical Exam Narrative: EXAM NARRATIVE: Abdomen: Abdominal pain not reproducible to palpation. normal bowel sounds MSK: Left flank moderately tender to palpation. Const: COMMON NORMALS: no acute distress, patient oriented x3 and alert HENMT: COMMON NORMALS: normocephalic and atraumatic HEAD & SCALP: normocephalic and atraumatic Eye: COMMON NORMALS: Equal, round and reactive pupils present, EOMs intact bilaterally and no scleral icterus PUPIL: Yes Equal, round and reactive pupils present Resp: COMMON NORMALS: normal respiratory effort and No retractions Cardio: COMMON NORMALS: regular rate, regular rhythm and No murmurs present (Cardio) RATE: regular rate RHYTHM: regular rhythm Neuro: COMMON NORMALS: patient oriented x3 SENSORIUM/ORIENTATION: Yes alert Skin: COMMON NORMALS: no rashes or lesions noted GENERAL SKIN EXAM: no rashes or lesions noted Course Vital Signs: Vital signs: Vital Signs Temperature 98.2 F 03/17/25 00:27 Pulse Rate 78 03/17/25 02:39 Respiratory Rate 16 03/17/25 02:39 Blood Pressure 131/78 03/17/25 02:39 Pulse Oximetry 95 03/17/25 02:39 Oxygen Delivery Me thod Room Air 03/17/25 02:12 Oxygen Flow Rate 3 03/17/25 00:27 MDM - Abdominal Pain Medical Decision Making 79 yo M with COPD and prior nephrolithiasis presents with LLQ abdominal pain radiating to left flank, constipation x3?5 days, and vomiting x3 with last episode described as nearly black. Vitals stable: BP 147/75, HR 87, RR 20, Temp 98.2. SpO2 97% on 3 L NC initially, later 99?100% on 3 L NC. PE: abdomen non-tender to palpation; left flank moderately tender. DDx discussed includes diverticulitis (pain location; prior diverticula), nephrolithiasis (flank tenderness; prior stones), GI bleeding (near-black emesis), and malignancy or other gut pathology. No final Dx yet. CT abdomen/pelvis planned. Blood work to be obtained. Symptomatic Tx with analgesics and antiemetics planned. O2 to be titrated down to 1?2 L NC given COPD and high SpO2 as discussed. Pending results and reassessment. CT scan shows a 3 mm distal left ureteral stone with hydronephrosis. Pain is much better with treatment. I suspect stone will pass spontaneously. He will be discharged in stable and improved condition with symptoms not get better. He already has pain and nausea medication at home follow-up to urology should Lab Data 03/17/25 00:42 03/17/25 00:42 Labs/Radiology: Radiology Impressions Abdomen/Pelvis CT 03/17/25 00:32 IMPRESSION: 1. Obstructing 3 mm mid left ureteral stone. 2. Mild left hydroureter. 3. Mild left hydronephrosis. 4. Moderate colonic stool burden. Recommend clinical correlation for constipation. 5. Colonic diverticulosis without evidence of acute diverticulitis. 6. Prostatomegaly. Correlate with PSA. 7. Degenerative joint disc disease, most notable at L5-S1. 8. Severe bilateral hip osteoarthritis. COMMENTS: Consistent with the [place] [employer]'s Incidental Findings Committee white paper (J Am Victorina Radiol 2018): Any incidental renal lesion less than 1 cm or classified as too small to characterize, or any incidental cystic renal lesion characterized as simple-appearing, is likely benign. No follow-up imaging is recommended for these lesions per consensus recommendations based on imaging criteria. Laboratory Results WBC 10.34 10^3/uL (3.29-11.43) 03/17/25 00:42 RBC 4.22 10^6/uL (3.85-5.65) 03/17/25 00:42 Hgb 13.40 g/dL (11.27-16.99) 03/17/25 00:42 Hct 40.5 % (37-53) 03/17/25 00:42 MCV 96.0 fl (82-101) 03/17/25 00:42 MCH 31.8 pg (27-33) 03/17/25 00:42 MCHC 33.1 g/dL (30-55) 03/17/25 00:42 RDW 13.2 % (12.1-15.1) 03/17/25 00:42 Plt Count 187 10^3/cmm (157-399) 03/17/25 00:42 MPV 9.1 fL (7.4-10.4) 03/17/25 00:42 Neut % (Auto) 84.9 % 03/17/25 00:42 Lymph % (Auto) 7.3 % 03/17/25 00:42 Saunders % (Auto) 6.9 % 03/17/25 00:42 Eos % (Auto) 0.2 % 03/17/25 00:42 Baso % (Auto) 0.2 % 03/17/25 00:42 Neut # (Auto) 8.79 10^3/uL (1.8-7.7) H 03/17/25 00:42 Lymph # (Auto) 0.8 10^3/uL (0.8-4.8) 03/17/25 00:42 Saunders # (Auto) 0.7 10^3/uL (0.2-0.9) 03/17/25 00:42 Eos # (Auto) 0.0 10^3/uL (0.0-0.8) 03/17/25 00:42 Baso # (Auto) 0.0 10^3/uL (0.0-0.1) 03/17/25 00:42 Nucleated RBC % (auto) 0 % 03/17/25 00:42 Nucleated RBCs # 0.0 /100WBC 03/17/25 00:42 Sodium 140 mmol/L (136-145) 03/17/25 00:42 Potassium 4.2 mmol/L (3.5-5.1) 03/17/25 00:42 Chloride 102 mmol/L (98-107) 03/17/25 00:42 Carbon Dioxide 25 mmol/L (22-29) 03/17/25 00:42 Anion Gap 17.2 (5-19) 03/17/25 00:42 BUN 19 mg/dL (8-23) 03/17/25 00:42 Creatinine 0.9 mg/dL (0.7-1.2) 03/17/25 00:42 GFR Calculation Not Reportable 03/17/25 00:42 Glucose 137 mg/dL (65-115) H 03/17/25 00:42 Calculated Osmolality 294 mOsm/kg (285-295) 03/17/25 00:42 Calcium 9.4 mg/dL (8.5-10.5) 03/17/25 00:42 Total Bilirubin 0.5 mg/dL (0.15-1.2) 03/17/25 00:42 AST 14 U/L (0-40) 03/17/25 00:42 ALT 8 U/L (0-41) 03/17/25 00:42 Alkaline Phosphatase 55 U/L (40-130) 03/17/25 00:42 Total Protein 6.5 g/dL (6.6-8.7) L 03/17/25 00:42 Albumin 4.3 g/dL (3.5-5.2) 03/17/25 00:42 Globulin 2.2 g/dL (1.3-4.6) 03/17/25 00:42 Lipase 24 U/L (13-60) 03/17/25 00:42 All radiology interpretation(s) finalized by discharge Discharge Plan Discharge Patient Disposition: Home Clinical Impression: Left ureteral calculus Condition: Stable Prescriptions: No Action ipratropium-albuterol 0.5 mg-3 mg(2.5 mg base)/3 mL solution for nebulization 3 ml INHALATION QID PRN (Reason: Shortness Of Breath) hydrochlorothiazide 25 mg tablet 25 mg PO QAM albuterol sulfate [ProAir HFA] 90 mcg/actuation HFA aerosol inhaler 2 puff INHALATION Q6H PRN (Reason: Shortness Of Breath) flaxseed oil 1,000 mg capsule 1,000 mg PO QAM Breztri Aerosphere 160-9-4.8 mcg/actuation HFA aerosol inhaler 2 inh inhalation BID sucralfate 1 gram tablet 1 g PO BID pantoprazole 40 mg tablet,delayed release (DR/EC) 40 mg PO BID 30 Days Qty: 60 5RF guaifenesin [Mucinex] 600 mg tablet extended release 12hr 600 mg PO Q12H PRN prednisone 10 mg tablet 10 mg PO DAILY PRN (Reason: wheezing) Qty: 14 0RF Rx Instructions: 2 tabs x 10 mg = 20 mg x 4 days 1 tab x 10 mg = 10 mg x 6 days doxycycline hyclate 100 mg tablet 100 mg PO BID Qty: 10 0RF garlic Tablet 1 tab PO QAM potassium gluconate 595 mg (99 mg) Tablet 595 mg PO QAM [place] PDR 1 cap PO QAM Vitamin C 2 tab PO DAILY Vitamin D3 1 cap PO QAM Discharge Orders: Discharge ED (Routine); Ordered 03/17/25 Ordered By: Fabrizio Arriaza Referrals: Mary Chance MD [Primary Care Provider, Family Practice] Elena March APRN [Referring, Urology] Clinical Impression: Left ureteral calculus Discharge Diet: Advance as tolerated Discharge Activity: Increase activity as tolerated Patient Instructions: Ureteral Stones (ED), Patient Portal & Bryan Instructions Activity Restrictions/Additional Instructions: CT scan shows a 3 mm diameter left sided kidney stone stuck in the ureter between the kidney and the bladder. It looks like it is at the bottom of the pipe and should pass into the bladder soon at which time your pain should be all better. You also had some constipation noted on CT scan for which you can take MiraLAX and drink more water. Print Language: [place] Coding Level of Care Code ED Computer Numeric Control Setter for Kayla Arguelles
--- NOTE | 2025-03-20 09:51 | DCPLANNER ---
Sent Urology Referral to Archana
== END 2025-03-17 02:40 | disposition home or self-care (01) ==
PROVIDERS: Emergency Provider Student in an Organized Health Care Education/Training Program; PCP Family Medicine
DX: N20.1 Calculus of ureter (principal); Z87.891 Personal history of nicotine dependence; E78.5 Hyperlipidemia, unspecified; J44.9 Chronic obstructive pulmonary disease, unspecified; I10 Essential (primary) hypertension
CPT/HCPCS: 74177; 80053; 83690; 85025; 96361; 96374; 96375; 99285; J1885; J2270; J2405; J7030